=== PATIENT | female | born 1965 | race Two or more races ===

== ENCOUNTER → 2024-06-09 | Emergency (ER) | payer OTHER ==
[~2024-06-09] VITALS: Ht 154.9 cm; Wt 68.0 kg
[~2024-06-09] MED LIST: 0.9 % SODIUM CHLORIDE 500 ML IV STA; ACETAMINOPHEN 500 MG GEL..CAP PO ONE; GUAIFENESIN 200 MG/10 ML BLIST.PACK PO ONE; TIROSINT50 MCG PO
[2024-06-09 21:59] LABS: HEMATOCRIT 41.2 % (36.0-45.00); HEMOGLOBIN 14.1 g/dL (12.0-15.00); MEAN CELL VOLUME 86.7 fL (80.00-100.00); MEAN CORPUSCULAR HEMOGLOBIN 29.7 pg (27.00-32.0); MEAN CORPUSCULAR HGB CONC 34.2 g/dl (32.0-36.0); PLATELET COUNT 221 K/uL (150-450); RED BLOOD COUNT 4.75 M/uL (4.00-6.00); RED CELL DISTRIBUTION WIDTH 13.8 % (11.5-14.5)
[2024-06-09 22:11] LABS: CREATININE SERUM 0.77 mg/dL (0.55-1.02); GFR 77.27; POTASSIUM 3.62 mEq/L (3.5-5.1)
[2024-06-09 22:29] LABS: COVID-19 AG NEGATIVE (NEGATIVE)
[2024-06-09 22:37] LABS: INFLUENZA A AG POSITIVE (NEGATIVE)
== END | disposition home or self-care (01) ==
LOC: ER 20:29
PROVIDERS: General Practice
DX: J10.1 Influenza due to other identified influenza virus with other respiratory manifestations (principal); R53.81 Other malaise; Z20.822 Contact with and (suspected) exposure to COVID-19; E03.8 Other specified hypothyroidism; Z88.0 Allergy status to penicillin